=== PATIENT | male | born 1990 | race Caucasian/White ===

== ENCOUNTER 2018-01-15 04:16 | Emergency (ER) | payer SELFPAY ==
[~2018-01-15] VITALS: Ht 170.2 cm; Wt 81.6 kg
[2018-01-15 04:25] VITALS: BP_SYST 103
--- NOTE | 2018-01-15 04:30 | NUR ---
Patient brought in by [facility] for medical clearance. Patien sitting in chair with right hand cuffed to the chair. P officers at bedside. Patient was reported to have evaded arrest and was "tackled to concrete" per P officers. Patient has multiple abrasions to left side of face at: L Cheek, L Ear, and left lower lip. No active bleeding noted. Patient denies medical history. Denies pain,denies shortness of breath. No acute distress noted. Patient sitting in chair, not talking, staring at floor. Will continue to monitor.
--- NOTE | 2018-01-15 04:50 | NUR ---
ER at bedside examining patient.
--- NOTE | 2018-01-15 04:52 | NUR ---
Abrasions to left lip, left cheek, and left ear cleaned. Laceration to left ear lobe noted during wound care. MD Dr. Torres notified. When asked by Dr. Torres if he wanted stitches patient replied "No sir."
--- NOTE | 2018-01-15 04:53 | NUR ---
Instructed by Dr. Torres to place steri-strips to patient laceration on Left lower ear lobe.
--- NOTE | 2018-01-15 04:55 | NUR ---
Steri-strips in place. No adverse reaction noted. made aware.
[2018-01-15 05:10] VITALS: BP_SYST 103
--- NOTE | 2018-01-15 05:10 | NUR ---
Patient given written and verbal discharge instructions and verbalizes understanding. ER MD Dr. Torres discussed with patient the results and treatment provided. Patient in stable condition. ID arm band removed. No Rx given. Patient educated on pain management and to follow up with PMD in 2-3 days. Pain Scale 0/10 . Opportunity for questions provided and answered. Patient discharged into P custody.
== END 2018-01-15 05:10 ==
LOC: SED 04:16
DX: S01.312A Laceration without foreign body of left ear, initial encounter (principal); X58.XXXA Exposure to other specified factors, initial encounter; Y93.89 Activity, other specified; Y92.89 Other specified places as the place of occurrence of the external cause; Y99.8 Other external cause status
CPT/HCPCS: 99283